=== PATIENT | male | born 1990 | race Two or more races ===

== ENCOUNTER 2016-11-21 10:44 | Emergency (ER) | payer SELFPAY ==
[~2016-11-21] VITALS: Ht 185.4 cm; Wt 86.2 kg
[2016-11-21 10:47] VITALS: BP 125/73
--- NOTE | 2016-11-21 11:08 | NUR ---
NOTE: CANNOT DEPART THE PATIENT, DEPART BUTTON IS INACTIVE.
[2016-11-27] MEDS ORDERED: LEVO500T15 PO (12:11)
== END 2016-11-21 11:12 | disposition home or self-care (01) ==
LOC: EDBD 10:46 → ER 10:46
DX: H60.11 Cellulitis of right external ear (principal)
CPT/HCPCS: A4606; Z7610

== ENCOUNTER 2016-11-24 16:08 | Inpatient (IN) | payer BC ==
[~2016-11-24] VITALS: Ht 185.4 cm; Wt 88.2 kg
--- NOTE | 2016-11-24 16:45 | NUR ---
PATIENT PRESENTS TO ER C/O R EAR PAIN AND SWELLING WAS SEEN HERE AND WAS PRESCRIBED WITH BACTRIM AND KEFLEX. PER PATIENT, EAR PAIN AND SWELLING GETTING WORSE. NO SOB. VITALS STABLE. SAFETY AND COMFORT MEASURES IN PLACE. AWAITING MD ORDERS.
[2016-11-24] MEDS ORDERED: PIPERACILLIN /TAZOBACTAM 3.375 G in IV D5W 50 ML IV ONE (17:00)
[2016-11-24] MEDS ORDERED: VANCOMYCIN 1 GM in IV D5W 250 ML IV ONE (17:00)
[2016-11-24] MEDS ORDERED: HYDROCODONE/APAP 5/325MG 1 EACH TABLET PO ONE (17:00)
[2016-11-24] MEDS ORDERED: HYDROCODONE/APAP 5/325MG 1 EACH TABLET ONE (17:05)
--- NOTE | 2016-11-24 17:05 | NUR ---
NEW IV STARTED ON LAC,18 G. BLOOD DRAWN AND SENT TO LAB. PATIENT MEDICATED PER MD ORDERS.
[2016-11-24] MEDS ORDERED: SULF1TAB3 PO (17:13)
[2016-11-24] MEDS ORDERED: CEPH500C2 PO (17:13)
[2016-11-24 17:18] LABS: CALCIUM, SERUM 8.3 mg/dL (8.5-10.1); CREATININE 1.2 mg/dL (0.6-1.3); POTASSIUM 4.1 mmol/L (3.5-5.1)
[2016-11-24 17:24] LABS: BASOPHILS % (AUTO) 0.3 % (0.0-2.0); EOSINOPHILS # (AUTO) 0.2 /CMM (0.0-0.7); EOSINOPHILS % (AUTO) 3.3 % (0.0-6.0); HEMATOCRIT 45 % (39-51); HEMOGLOBIN 15.4 g/dL (13.5-17.5); LYMPHOCYTES % (AUTO) 14.6 % (20.0-44.0); MEAN CORPUSCULAR HEMOGLOBIN 30 PG (26.0-33.0); MEAN CORPUSCULAR HGB CONC 34 g/dl (31.0-36.0); MEAN CORPUSCULAR VOLUME 87 fL (80-96); MONOCYTES # (AUTO) 0.6 /CMM (0.1-1.30); MONOCYTES % (AUTO) 7.9 % (2.0-12.0); NEUTROPHILS # (AUTO) 5.3 /CMM (1.8-8.9); NEUTROPHILS % (AUTO) 73.9 % (43.0-81.0); PLATELET COUNT (AUTO) 152 /CMM (150-450); RDW COEFFICIENT OF VARIATION 11.9 (11.5-15.0); RED BLOOD CELL COUNT(AUTO) 5.16 MIL/uL (4.5-6.0); WHITE BLOOD COUNT (AUTO) 7.1 K/uL (4.3-11.0)
--- NOTE | 2016-11-24 17:39 | NUR ---
REPORT GIVEN TO RN, AFSATU FOR ADMISSION TO ROOM 200
--- NOTE | 2016-11-24 17:58 | NUR ---
PATIENT TRANSPORTED TO ROOM 200 VIA STRETCHER WITH EMT. PATIENT REMAINS IN STABLE CONDITION. VANCOMYCIN INFUSING ON TRANSFER TO FLOOR. RN, AFSATU TO PROVIDE ELODIA.
--- NOTE | 2016-11-24 18:00 | NUR ---
MS RN OPENING NOTES RECEIVED PT FROM ER NURSE IN STABLE CONDITION. PT IS A/O X4. NO SOB OR SIGNS OF DISTRESS NOTED. BREATHING IS EVEN AND UNLABORED. PT DENIES ANY PAIN AT THIS TIME. CELLULITIS NOTED ON RIGHT EAR. PT REPORTS SOURCE OF INFECTION FROM A SPIDER OR CENTIPEDE BITE. IV PRESENT ON LAC 18 INFUSING VANCO FROM ER. IV IS PATENT AND INTACT. NO REDNESS OR SIGNS OF INFILTRATION NOTED. BELONGS VERIFIED AND REVIEWED. FORM SIGNED BY PT. PT ORIENTED TO ROOM. BED IN LOW LOCKED POSITION, SIDE RAILS UP X2, CALL LIGHT WITHIN REACH. YEVGENIY THE RN WILL CONTINUE HIS ADMISSION PROCESS.
[2016-11-24 18:55] VITALS: BP 124/63
[2016-11-24] MEDS ORDERED: MAG HYDROX/AL HYDROX/SIMETH 30 ML UDC PO PRN (19:00)
[2016-11-24] MEDS ORDERED: MAGNESIUM HYDROXIDE 30 ML UDC PO PRN (19:00)
[2016-11-24] MEDS ORDERED: ACETAMINOPHEN 325 MG TABLET PO PRN (19:00)
[2016-11-24] MEDS ORDERED: Z GUARD REMEDY 2 OZ OINT TP PRN (19:00)
[2016-11-24] MEDS ORDERED: ONDANSETRON HCL/PF 4 MG/2 ML VIAL IVP PRN (19:00)
[2016-11-24] MEDS ORDERED: FEE PK DOSING 1 MIN EA MC ONE (19:02)
--- NOTE | 2016-11-24 19:30 | NUR ---
MS RN NOTES RECEIVED ON BED A/O X4,BREATHING REGULAR.SA;INE LOCK LEFT AC INTACT AND PATENT.AMBULATORY.C/O PAIN VIA RIGHT EAR 6/10 ON PAIN SCALE,WILL MEDICATE.CALL LIGHT IN REACH,NEEDS ANTICIPATED.
[2016-11-24] MEDS: HYDROCODONE/APAP 5/325MG 1 EACH TABLET PO PRN (19:50)
--- NOTE | 2016-11-24 19:50 | NUR ---
MS RN NOTES PAIN MANAGEMENT MEDICATED WITH NORCO 5/325MG,1TAB PO FOR PAIN SCALE 6/10.WILL MONITOR FOR RELIEF.
[2016-11-24] MEDS: ENOXAPARIN SODIUM 40 MG/0.4 ML DISP.SYRIN SQ SCH (19:51)
--- NOTE | 2016-11-24 19:51 | NUR ---
MS RN NOTES MEDICATE WITH LOVENOX 4OMG SQ VIA RIGHT LOWER ABDOMEN ORDERED.
[2016-11-24 20:00] VITALS: BP 106/65
--- NOTE | 2016-11-24 21:15 | NUR ---
MS RN NOTES WENT DOWN TO SMOKE ACCOMPANIED BY GENIA JEAN
[2016-11-24] MEDS: PIPERACILLIN /TAZOBACTAM 3.375 G in IV D5W 50 ML IV SCH (23:40)
--- NOTE | 2016-11-24 23:40 | NUR ---
MS RN NOTES STARTED ON ZOSYN 3.375GM IVPB ORDERED.
[2016-11-24] MEDS: ZOLPIDEM TARTRATE 5 MG TABLET PO PRN (23:44)
--- NOTE | 2016-11-24 23:44 | NUR ---
MS RN NOTES C/O INSOMNIA,AMBIEN 5MG PO GIVEN
--- NOTE | 2016-11-25 02:00 | NUR ---
MS RN NOTES SOUND ASLEEP,KEPT WARM AND COMFORTABLE.
[2016-11-25] MEDS: VANCOMYCIN 1 GM in IV D5W 250 ML IV SCH ×3 (02:04→17:54)
[2016-11-25] MEDS: PIPERACILLIN /TAZOBACTAM 3.375 G in IV D5W 50 ML IV SCH ×4 (05:40→23:41)
--- NOTE | 2016-11-25 06:42 | NUR ---
MS RN NOTES SLEPT WELL WITH AMBIEN 5MG,PAIN MANAGEMENT EFFECTIVE.IV ABX TOLERATED WELL,NO ADVERSE SIDE EFFECTS NOTED.CALL LIGHT IN REACH,NEEDS ATTENDED.WILL ENDORSE TO DAY NURSE FOR ELODIA.
[2016-11-25 06:52] LABS: BASOPHILS % (AUTO) 0.8 % (0.0-2.0); EOSINOPHILS # (AUTO) 0.4 /CMM (0.0-0.7); HEMATOCRIT 44 % (39-51); HEMOGLOBIN 15.1 g/dL (13.5-17.5); LYMPHOCYTES # (AUTO) 1.8 /CMM (0.8-4.8); LYMPHOCYTES % (AUTO) 31.1 % (20.0-44.0); MEAN CORPUSCULAR HEMOGLOBIN 30 PG (26.0-33.0); MEAN CORPUSCULAR HGB CONC 34 g/dl (31.0-36.0); MEAN CORPUSCULAR VOLUME 88 fL (80-96); MONOCYTES # (AUTO) 0.5 /CMM (0.1-1.30); MONOCYTES % (AUTO) 8.2 % (2.0-12.0); NEUTROPHILS # (AUTO) 2.9 /CMM (1.8-8.9); NEUTROPHILS % (AUTO) 51.9 % (43.0-81.0); PLATELET COUNT (AUTO) 153 /CMM (150-450); RED BLOOD CELL COUNT(AUTO) 5.03 MIL/uL (4.5-6.0); WHITE BLOOD COUNT (AUTO) 5.7 K/uL (4.3-11.0)
[2016-11-25 07:06] LABS: CREATININE 1.2 mg/dL (0.6-1.3); PHOSPHORUS 5.5 mg/dL (2.5-4.9); POTASSIUM 3.6 mmol/L (3.5-5.1)
--- NOTE | 2016-11-25 07:44 | NUR ---
RN MS NOTES PATIENT ASLEEP BUT EASILY AROUSABLE, NO S/SX OF DISTRESS OR PAIN AT THIS TIME, NEEDS ATTENDED AND ANTICIPATED, SAFETY MEASURES IN PLACED, CALL LIGHT WITHIN REACH, WILL CONTINUE TO MONITOR.
[2016-11-25 08:00] VITALS: BP 111/54
[2016-11-25] MEDS: PANTOPRAZOLE 40 MG TABLET.DR PO SCH (08:14)
[2016-11-25] MEDS: HYDROCODONE/APAP 5/325MG 1 EACH TABLET PO PRN (08:15)
--- NOTE | 2016-11-25 09:33 | NUR ---
RN MS NOTES SEEN BY DR. SMALL, RECEIVED NEW ORDER OF MORPHINE, ORDER NOTED AND CARRIED OUT. PATIENT AWARE.
[2016-11-25] MEDS: MORPHINE SULFATE INJ 2 MG/ML DISP.SYRIN IV PRN ×2 (10:40→17:20)
[2016-11-25 16:00] VITALS: BP 105/66
[2016-11-25] MEDS: LACTOBACILLUS RHAMNOSUS GG 1 EACH CAP.SPRINK PO SCH (17:19)
--- NOTE | 2016-11-25 18:40 | NUR ---
RN MS NOTES PATIENT ALERT AND ORIENTED, DENIES PAIN AT THIS TIME, IV ATB ADMINISTERED NO ADVERSE REACTION NOTED, ALL DUE MEDS GIVEN ORDERED, PATIENT ABLE TO AMBULATE INDEPENDENTLY, SMOKED A FEW TIMES DURING THIS SHIFT, RIGHT EAR WOUND STILL NOTED WITH REDNESS AND SCABBING, NO CHANGES, PIV ON LEFT AC PATENT AND FLUSHES WELL, NO DISTRESS NOTED, SAFETY MEASURES IN PLACED, WILL ENDORSE TO SKILLS TRAINER FOR CONTINUITY OF CARE.
--- NOTE | 2016-11-25 19:15 | NUR ---
MS RN NOTES RECEIVED RESTING COMFORTABLY ON BED,A/O X4, PAIN BEARABLE AT THE MOMENT ON THE RIGHT EAR.NS AT TKO RATE IN PROGRESS VIA LEFT AC.CALL LIGHT IN REACH.NEEDS ANTICIPATED.
[2016-11-25 20:00] VITALS: BP 110/57
--- NOTE | 2016-11-25 20:00 | NUR ---
MS RN NOTES WENT DOWN TO SMOKE ACCOMPANIED BY GENIA JEAN
[2016-11-25] MEDS: ENOXAPARIN SODIUM 40 MG/0.4 ML DISP.SYRIN SQ SCH (20:47)
--- NOTE | 2016-11-25 21:00 | NUR ---
MS RN NOTES DUE LOVENOX 40MG SQ ADMINISTERED ON LEFT LOWER ABDOMEN
[2016-11-25] MEDS: ZOLPIDEM TARTRATE 5 MG TABLET PO PRN (23:47)
--- NOTE | 2016-11-25 23:47 | NUR ---
MS RN NOTES STILL AWAKE,C/O INSOMNIA,AMBIEN 5MG PO GIVEN
[2016-11-26] MEDS: HYDROCODONE/APAP 5/325MG 1 EACH TABLET PO PRN (00:08)
--- NOTE | 2016-11-26 00:08 | NUR ---
MS RN NOTES C/O PAIN 09/11 VIA RIGHT EAR,NORCO 5/325MG 1TABPO GIVEN
[2016-11-26] MEDS: VANCOMYCIN 1 GM in IV D5W 250 ML IV SCH ×3 (02:00→17:12)
[2016-11-26] MEDS: PIPERACILLIN /TAZOBACTAM 3.375 G in IV D5W 50 ML IV SCH ×3 (05:28→17:04)
[2016-11-26] MEDS: MORPHINE SULFATE INJ 2 MG/ML DISP.SYRIN IV PRN ×2 (05:50→10:00)
--- NOTE | 2016-11-26 05:50 | NUR ---
MS RN NOTES C/O PAIN VIA RIGHT EAR 8/10 ON PAIN SCALE,MEDICATED WITH MORPHINE 2MG IV ORDERED.
--- NOTE | 2016-11-26 06:32 | NUR ---
MS RN NOTES A/O X4,PAIN MANAGEMENT EFFECTIVE.IV ABX TOLERATED WELL.AWAITING WOUND CARE CONSULT.IN NO ACUTE DISTRESS.WILL ENDORSE TO DAY NURSE FOR ELODIA.
[2016-11-26 07:20] LABS: CALCIUM, SERUM 8.7 mg/dL (8.5-10.1); CREATININE 1.3 mg/dL (0.6-1.3); POTASSIUM 4.2 mmol/L (3.5-5.1)
--- NOTE | 2016-11-26 07:58 | NUR ---
MS RN OPENING NOTE PATIENT IS ALERT AND ORIENTED x4. NO PAIN AT THIS TIME. NO SOB OR DISTRESS NOTED. CALL LIGHT WITHIN REACH. SAFETY MEASURES IMPLEMENTED. IV INTACT AND PATENT NO REDNESS OR SWELLING NOTED. AMBULATORY WITH BRP. ABLE TO COMMUNICATE NEEDS. REGULAR DIET. WOUND CONSULT STILL PENDING. WILL CONTINUE TO MONITOR
[2016-11-26 08:00] VITALS: BP 106/60
[2016-11-26] MEDS: LACTOBACILLUS RHAMNOSUS GG 1 EACH CAP.SPRINK PO SCH ×2 (08:17→17:04)
[2016-11-26] MEDS: PANTOPRAZOLE 40 MG TABLET.DR PO SCH (08:17)
[2016-11-26] MEDS ORDERED: HYDROCODONE/APAP 10/325MG 1 EA TABLET PO ONE (14:00)
[2016-11-26] MEDS ORDERED: HYDROCODONE/APAP 10/325MG 1 EA TABLET PO PRN (14:00)
[2016-11-26 16:00] VITALS: BP 117/64
--- NOTE | 2016-11-26 18:38 | NUR ---
MS RN CLOSING NOTE PATIENT IS ALERT AND ORIENTED x4. NO PAIN AT THIS TIME. NO SOB OR DISTRESS NOTED. CALL LIGHT WITHIN REACH AT ALL TIMES. SAFETY MEASURES IMPLEMENTED. ABLE TO COMMUNICATE NEEDS. ALL DUE MEDICATIONS GIVEN ORDERED. IV INTACT AND PATENT NO REDNESS OR SWELLING NOTED, FLUSHES WELL. WOUND CONSULT STILL PENDING. WILL ENDORSE TO BRICK SORTER NURSE FOR ELODIA
--- NOTE | 2016-11-26 19:30 | NUR ---
MS RN OPENING NOTE PATIENT IS ALERT AND ORIENTED x4. NO PAIN AT THIS TIME. NO SOB OR DISTRESS NOTED. CALL LIGHT WITHIN REACH. SAFETY MEASURES IMPLEMENTED. IV INTACT AND PATENT NO REDNESS OR SWELLING NOTED. AMBULATORY WITH BRP. ABLE TO COMMUNICATE NEEDS.WOUND CONSULT STILL PENDING. WILL CONTINUE TO MONITOR
[2016-11-26 20:00] VITALS: BP 122/66
[2016-11-26] MEDS: ENOXAPARIN SODIUM 40 MG/0.4 ML DISP.SYRIN SQ SCH (20:52)
[2016-11-27] MEDS: VANCOMYCIN 1 GM in IV D5W 250 ML IV SCH ×2 (00:43→08:59)
[2016-11-27] MEDS: MORPHINE SULFATE INJ 2 MG/ML DISP.SYRIN IV PRN ×2 (00:50→09:10)
[2016-11-27] MEDS: PIPERACILLIN /TAZOBACTAM 3.375 G in IV D5W 50 ML IV SCH ×3 (01:56→11:20)
[2016-11-27] MEDS: PANTOPRAZOLE 40 MG TABLET.DR PO SCH (06:31)
[2016-11-27 06:37] LABS: BASOPHILS % (AUTO) 0.8 % (0.0-2.0); EOSINOPHILS # (AUTO) 0.4 /CMM (0.0-0.7); EOSINOPHILS % (AUTO) 7.3 % (0.0-6.0); HEMATOCRIT 46 % (39-51); HEMOGLOBIN 15.4 g/dL (13.5-17.5); LYMPHOCYTES % (AUTO) 33.4 % (20.0-44.0); MEAN CORPUSCULAR HEMOGLOBIN 30 PG (26.0-33.0); MEAN CORPUSCULAR HGB CONC 34 g/dl (31.0-36.0); MEAN CORPUSCULAR VOLUME 88 fL (80-96); MONOCYTES # (AUTO) 0.4 /CMM (0.1-1.30); NEUTROPHILS # (AUTO) 3.1 /CMM (1.8-8.9); NEUTROPHILS % (AUTO) 51.5 % (43.0-81.0); PLATELET COUNT (AUTO) 162 /CMM (150-450); RED BLOOD CELL COUNT(AUTO) 5.19 MIL/uL (4.5-6.0)
[2016-11-27 06:53] LABS: CALCIUM, SERUM 8.7 mg/dL (8.5-10.1); CREATININE 1.2 mg/dL (0.6-1.3); PHOSPHORUS 5.7 mg/dL (2.5-4.9); POTASSIUM 3.8 mmol/L (3.5-5.1)
--- NOTE | 2016-11-27 06:57 | NUR ---
MS RN NOTE PATIENT STABLE. ALL NEEDS MET AND ATTENDED TO. WILL ENDORSE TO DAY SHIFT FOR ELODIA.
--- NOTE | 2016-11-27 07:16 | NUR ---
RN OPEN NOTES RECEIVED REPORT FROM MAINTENANCE PARTS TECHNICIAN NURSE. WILL CONTINUE TO MONITOR AND ASSESS PATIENT THROUGH OUT MY SHIFT
[2016-11-27 08:00] VITALS: BP 101/59
[2016-11-27] MEDS: LACTOBACILLUS RHAMNOSUS GG 1 EACH CAP.SPRINK PO SCH (08:57)
[2016-11-27] MEDS ORDERED: LEVO500T15 PO (12:11)
--- NOTE | 2016-11-27 16:46 | NUR ---
CLIENT DEVELOPMENT DIRECTOR NOTES PATIENT DISCHARGE ORDERS RECEIVED AND CARRIED OUT. PATIENT IS LEAVING IN A STABLE CONDITION. NO SIGNS AND SYMPTOMS OF DISTRESS. NO PAIN UPON DISCHARGE. ALL DISCHARGE INSTRUCTIONS EXPLAINED TO PATIENT AND PATIENT VERBALIZED UNDERSTANDING. NO NEW CONCERNS IDENTIFIED UPON DISCHARGE. ALL PERSONAL BELONGING WITH PATIENT AT TIME OF DISCHARGE. PATIENT SIGNED BOTH DISCHARGE INSTRUCTIONS AND BELONGING LIST FORMS; FORMS PLACED IN THE CHART. NEW PRESCRIPTION SENT ELECTRONICALLY TO PATIENT'S PHARMACY. PATIENT RECEIVED EDUCATION REGARDING PRESCRIPTION. DISCHARGE PACKET GAVE TO PATIENT. I ADVISED PATIENT TO FOLLOW UP WITH HIS PRIMARY CARE POHYSICIAN WITHIN 7-14 DAYS AFTER DISCHARGE. PICTURE WAS TAKEN AND PLACED IN THE CHART. IV SITE REMOVED. ID BAND REMOVED. PATIENT WAS PICKED UP BY HIS GIRLFRIEND VIA A PRIVATE CAR.
== END 2016-11-27 16:40 | disposition home or self-care (01) | DRG 566 ==
LOC: ER 16:09 → MEDSG1 17:19 → MEDSG2 17:39
PROVIDERS: ADMIT Internal Medicine; ATTEND Internal Medicine
DX: H61.011 Acute perichondritis of right external ear (principal); H60.11 Cellulitis of right external ear; Y93.9 Activity, unspecified; S00.461A Insect bite (nonvenomous) of right ear, initial encounter; W57.XXXA Bitten or stung by nonvenomous insect and other nonvenomous arthropods, initial encounter; Y92.009 Unspecified place in unspecified non-institutional (private) residence as the place of occurrence of the external cause
CPT/HCPCS: 36415; 80048-TC; 80202-TC; 83735-TC; 84100-TC; 85025-TC; 87081-TC; J1650; J2270; J2543; J3370; J7050; J7060; Z7610